=== PATIENT | male | born 1990 | race American Indian/Alaskan Native ===

== ENCOUNTER 2021-06-24 00:19 | Emergency (ER) | payer SELFPAY ==
[2021-06-24 01:32] VITALS: BP 113/72
--- NOTE | 2021-06-24 04:53 | Emergency Department Report ---
ED Male HPI - General Chief complaint: Abdominal Pain Stated complaint: POSS STD Time Seen by Provider: 06/24/21 03:15 Source: patient Mode of arrival: Ambulatory Limitations: No Limitations - History of Present Illness Initial comments: 30-year-old male presents emerged department complaining of a couple day history of penile discharge and burning on urination which he thinks, secondary to a sex door that he was utilizing. States he does have a while but is not suspicious of an STD to due to the relationship states he had a similar episode in the past and he was treated accordingly for STDs and symptoms resolved later did discover that he had gonorrhea but feels that this is not the same case and that was an isolated incident He reports no fever, chills, sweats but no hemoptysis no hematuria no hematemesis MD Complaint: dysuria -: Gradual Severity: mild Quality: aching, dull Consistency: constant Improves with: none Worsens with: none, urination denies other symptoms - Related Data Sexually active: No Previous Rx's Medication Instructions Recorded Last Taken Type Azithromycin [Zithromax TAB] 1,000 mg PO ONCE #2 tablet 06/24/21 Unknown Rx Cefixime [Suprax] 800 mg PO ONCE #1 capsule 06/24/21 Unknown Rx DOXYCYCLINE Hyclate [Vibramycin 100 mg PO BID #28 capsule 06/24/21 Unknown Rx CAP] metroNIDAZOLE [Flagyl] 2,000 mg PO ONCE #4 tablet 06/24/21 Unknown Rx Allergies Allergy/AdvReac Type Severity Reaction Status Date / Time No Known Allergies Allergy Unverified 06/24/21 01:29 ED Review of Systems ROS: Stated complaint: POSS STD Other details as noted in HPI Comment: All other systems reviewed and negative ED Past Medical Hx - Past Medical History Previous Medical History?: No - Surgical History Past Surgical History?: No - Medications Home Medications: Home Medications Medication Instructions Recorded Confirmed Last Taken Type Azithromycin [Zithromax TAB] 1,000 mg PO ONCE #2 tablet 06/24/21 Unknown Rx Cefixime [Suprax] 800 mg PO ONCE #1 capsule 06/24/21 Unknown Rx DOXYCYCLINE Hyclate [Vibramycin 100 mg PO BID #28 capsule 06/24/21 Unknown Rx CAP] metroNIDAZOLE [Flagyl] 2,000 mg PO ONCE #4 tablet 06/24/21 Unknown Rx ED Physical Exam - General Limitations: No Limitations General appearance: alert, in no apparent distress - Head Head exam: Present: atraumatic, normocephalic - Eye Eye exam: Present: normal appearance - ENT ENT exam: Present: mucous membranes moist - Neck Neck exam: Present: normal inspection - Respiratory Respiratory exam: Present: normal lung sounds bilaterally. Absent: respiratory distress - Cardiovascular Cardiovascular Exam: Present: regular rate, normal rhythm. Absent: systolic murmur, diastolic murmur, rubs, gallop - GI/Abdominal GI/Abdominal exam: Present: soft, normal bowel sounds - Rectal Rectal exam: Present: deferred - Extremities Exam Extremities exam: Present: normal inspection - Back Exam Back exam: Present: normal inspection. Absent: CVA tenderness (R), CVA tenderness (L) - Neurological Exam Neurological exam: Present: alert, oriented X3, CN II-XII intact - Psychiatric Psychiatric exam: Present: normal affect, normal mood - Skin Skin exam: Present: warm, dry, intact, normal color. Absent: rash ED Course Vital Signs 06/24/21 01:31 Temperature 98.1 F Pulse Rate 72 Respiratory 17 Rate Blood Pressure 113/72 O2 Sat by Pulse 99 Oximetry ED Medical Decision Making - Medical Decision Making This patient presents to the emergency department with symptoms consistent with acute uncomplicated cystitis. No systemic symptoms. Not septic. She is well- appearing. Low suspicion for acute pyelonephritis given the lack of fever, CVA tenderness, or systemic features. Low suspicion for for kidney stone or infected stone. Not in age range for and her history and and presentation are complicated. No no indications for labs or imaging at this time. Critical care attestation.: If time is entered above; I have spent that time in minutes in the direct care of this critically ill patient, excluding procedure time. ED Disposition Clinical Impression: UTI (urinary tract infection) Disposition: HOME / SELF CARE / HOMELESS Is pt being admited?: No Does the pt Need Aspirin: No Condition: Stable Instructions: Antibiotic Medicine, Adult, [id number], Urinary Tract Infection, Adult, Urodynamic Testing, [id number], Urosepsis, Adult Prescriptions: metroNIDAZOLE [Flagyl] 2,000 mg PO ONCE #4 tablet Cefixime [Suprax] 800 mg PO ONCE #1 capsule DOXYCYCLINE Hyclate [Vibramycin CAP] 100 mg PO BID #28 capsule Azithromycin [Zithromax TAB] 1,000 mg PO ONCE #2 tablet Referrals: [facility] [Provider Group] - 3-5 Days EZ MURGUIA MD [Staff Physician] - 3-5 Days
[2021-06-24 05:18] LABS: Bilirubin,Urine NEG (Negative); Blood,Urine SM (Negative); Color,Urine Yellow (Yellow); Mucus,Urine 3+ /HPF
[2021-06-24 05:28] LABS: WBC,Urine > 182.0 /HPF (0.0-6.0)
== END 2021-06-24 06:21 | disposition home or self-care (01) ==
LOC: ED 00:19
DX: N39.0 Urinary tract infection, site not specified (principal)
CPT/HCPCS: 81001; 99283